=== PATIENT | female | born 1995 | race Caucasian/White ===

== ENCOUNTER 2021-08-09 01:17 | Emergency (ER) | payer BC ==
[~2021-08-09] VITALS: Ht 154.9 cm; Wt 57.2 kg
[2021-08-09 01:43] VITALS: BP_SYST 123
--- NOTE | 2021-08-09 01:52 | NUR ---
Patient ambulatory to bed 7 for evaluation
--- NOTE | 2021-08-09 02:10 | NUR ---
Dr. Cary bedside for pt eval
--- NOTE | 2021-08-09 02:22 | NUR ---
PT BIB FAMILY TO ED C/O +LAC TO LEFT KNEE S/P FALL. VSS NO S/S OF ACUTE DISTRESS RESTING ON GURNEY RAILS UP
[2021-08-09] MEDS ORDERED: LIDOCAINE/EPI 1% 1:100000 20 ML VIAL INJ ONE (02:45)
[2021-08-09] MEDS: DIPH-TET-PERTUS Vaccine 0.5 ML VIAL (ADACEL) I.M. ONE (02:49)
[2021-08-09] MEDS: BACITRACIN 1 GM OINT TP ONE (02:51)
--- NOTE | 2021-08-09 03:07 | NUR ---
Dr. Cary bedside for Lac Repair procedure
[2021-08-09] MEDS ORDERED: CEPH250C PO (03:43)
[2021-08-09] MEDS ORDERED: NACL 0.9% 1,000 ML IV SCH (03:45)
[2021-08-09 03:52] VITALS: BP_SYST 123
--- NOTE | 2021-08-09 03:52 | NUR ---
Patient given written and verbal discharge instructions and verbalizes understanding. ER MD discussed with patient the results and treatment provided. Patient in stable condition. ID arm band removed. Rx of Keflex given. Patient educated on pain management and to follow up with PMD. Pain Scale 0/10 Opportunity for questions provided and answered. Medication side effect fact sheet provided.
== END 2021-08-09 03:52 | disposition home or self-care (01) ==
LOC: SED 01:17
DX: S81.012A Laceration without foreign body, left knee, initial encounter (principal); Z79.899 Other long term (current) drug therapy; W18.39XA Other fall on same level, initial encounter; Y93.89 Activity, other specified; Y92.89 Other specified places as the place of occurrence of the external cause; Y99.8 Other external cause status
CPT/HCPCS: 90715; 99283